=== PATIENT | female | born 1995 | race Caucasian/White ===

== ENCOUNTER 2022-03-22 13:44 | Emergency (ER) | payer SELFPAY ==
[2022-03-22 15:28] LABS: ESTIMATED GFR > 60 mL/min (>60)
== END 2022-03-22 16:35 | disposition home or self-care (01) ==
LOC: JD.ED 13:44
DX: R07.89 Other chest pain (principal); F17.210 Nicotine dependence, cigarettes, uncomplicated; Z88.0 Allergy status to penicillin
CPT/HCPCS: 36415; 71045; 71045-26; 80053; 83735; 83880; 84443; 84484; 85025; 85379; 86140; 93005; 93010; 99283; 99285-25